=== PATIENT | female | born 1970 | race Caucasian/White ===

== ENCOUNTER 2017-09-06 07:57 | Emergency (ER) | payer OTHER ==
[~2017-09-06] VITALS: Ht 167.6 cm; Wt 102.5 kg
[2017-09-06] MEDS ORDERED: LO-DOSE ASPIRIN81 M1 PO (08:32)
[2017-09-06] MEDS ORDERED: CARVEDILOL6.25 MG PO (08:32)
[2017-09-06] MEDS ORDERED: SERTRALINE HCL25 MG PO (08:33)
[2017-09-06] MEDS ORDERED: ONE DAILY FOR1 EAC1 PO (08:33)
[2017-09-06] MEDS ORDERED: AMLODIPINE BESYL5 MG PO (08:33)
[2017-09-06 08:42] LABS: BASOPHIL COUNT 0.1 K/uL (0-0.1); EOSINOPHIL (%) 0.4 % (0-5); HEMATOCRIT 38.3 % (36.0-46.0); IMMATURE GRANULOCYTE (%) 0.3 % (0.0-0.7); INSTRUMENT ABS NEUTROPHIL CT 6.9 K/uL; LYMPHOCYTE COUNT 1.7 K/uL (1.0-2.8); MCH 31.3 PG (29.0-34.0); MCHC 33.2 G/DL (30.0-36.0); MCV 94.3 FL (83-99); MEAN PLAT.VOLUME 9.6 uM^3 (9.5-12.4); MONOCYTE (%) 3.4 % (3-12); MONOCYTE COUNT 0.3 K/uL (0-0.8); NEUTROPHIL (%) 76.6 % (45-76); NEUTROPHIL COUNT 6.9 K/uL (1.8-6.4); PLATELET COUNT 237 K/uL (156-360); RBC DIS.WIDTH-CV 12.5 % (11.8-14.6); RBC DIS.WIDTH-SD 43.5 % (39-53); RED BLOOD COUNT 4.06 M/uL (3.80-5.20)
[2017-09-06 09:00] LABS: CHLORIDE 106 mEq/L (99-109); POTASSIUM 4.3 mEq/L (3.7-5.4); SODIUM 138 mEq/L (136-147)
[2017-09-06 09:02] LABS: GLUCOSE 104 mg/dL (70-99); TROP-I INTERPRETATION NEGATIVE; TROPONIN-I < 0.01 ng/mL (0.0-0.30)
[2017-09-06 09:03] LABS: ANION GAP 9 MEQ/L (2-14)
[2017-09-06 09:06] LABS: GFR ESTIMATE (CALCULATED) > 59 mL/min/
[2017-09-06 09:07] LABS: UREA NITROGEN (BUN) 10 mg/dL (9-23)
[2017-09-06 11:22] LABS: TROP-I INTERPRETATION NEGATIVE; TROPONIN-I < 0.01 ng/mL (0.0-0.30)
[2017-09-06 12:01] VITALS: BP 127/91
== END 2017-09-06 12:00 | disposition home or self-care (01) ==
LOC: EME 07:57
PROVIDERS: Emergency Medicine
DX: R07.89 Other chest pain (principal); I10 Essential (primary) hypertension; Z87.891 Personal history of nicotine dependence; Z88.2 Allergy status to sulfonamides; Z91.040 Latex allergy status
CPT/HCPCS: 71010; 80048; 84484; 85025; 93005; 99281; 99285

== ENCOUNTER 2017-11-15 11:35 | Emergency (ER) | payer OTHER ==
[~2017-11-15] VITALS: Ht 167.6 cm; Wt 103.7 kg
[~2017-11-15 11:35] MED LIST: AMLODIPINE BESYL5 MG PO; CARVEDILOL6.25 MG PO; LO-DOSE ASPIRIN81 M1 PO; ONE DAILY FOR1 EAC1 PO; SERTRALINE HCL25 MG PO
[2017-11-15 12:05] LABS: HEMATOCRIT 39.4 % (36.0-46.0); HEMOGLOBIN 13.4 G/DL (11.9-15.5); MCH 31.5 PG (29.0-34.0); MCV 92.7 FL (83-99); PLATELET COUNT 218 K/uL (156-360); RBC DIS.WIDTH-CV 12.5 % (11.8-14.6); RBC DIS.WIDTH-SD 42.6 % (39-53); RED BLOOD COUNT 4.25 M/uL (3.80-5.20); WHITE BLOOD COUNT 7.8 K/uL (4.1-10.2)
[2017-11-15 12:17] LABS: CHLORIDE 106 mEq/L (99-109); SODIUM 138 mEq/L (136-147)
[2017-11-15 12:18] LABS: GLUCOSE 99 mg/dL (70-99)
[2017-11-15 12:22] LABS: CREATININE 0.8 mg/dL (0.6-1.3); GFR ESTIMATE (CALCULATED) > 59 mL/min/
[2017-11-15 12:23] LABS: UREA NITROGEN (BUN) 12 mg/dL (9-23)
[2017-11-15 12:28] LABS: TROP-I INTERPRETATION NEGATIVE; TROPONIN-I < 0.01 ng/mL (0.0-0.30)
[2017-11-15 12:30] LABS: QUANTITATIVE HCG < 4.0 MIU/ML
[2017-11-15] MEDS ORDERED: ATIVAN1 MG PO (13:58)
[2017-11-15 15:02] VITALS: BP 141/96
== END 2017-11-15 15:10 | disposition home or self-care (01) ==
LOC: EME → EDBD 11:35 → EME 11:35
PROVIDERS: Emergency Medicine Emergency Medical Services
DX: R07.9 Chest pain, unspecified (principal); F41.0 Panic disorder [episodic paroxysmal anxiety]; R11.0 Nausea; I10 Essential (primary) hypertension; F32.9 Major depressive disorder, single episode, unspecified; Z79.82 Long term (current) use of aspirin; Z87.891 Personal history of nicotine dependence; Z88.2 Allergy status to sulfonamides; Z91.040 Latex allergy status
CPT/HCPCS: 80048; 84484; 84702; 85027; 93005; 99281; 99285; J2060